=== PATIENT | male | born 1985 | race Caucasian/White ===

== ENCOUNTER 2016-08-27 09:08 | Emergency (ER) | payer OTHER ==
[~2016-08-27] VITALS: Wt 103.5 kg
[~2016-08-27 09:08] MED LIST: NAPR-260 PO
[2016-08-27] MEDS ORDERED: IBUP-1542 PO (10:35)
[2016-08-27] MEDS ORDERED: LORA10TA3 PO (10:35)
--- NOTE | 2016-08-27 11:15 | ERD ---
ER Documentation Chief Complaint Date/Time DATE: 08/27/16 TIME: 11:13 Chief Complaint HEADACHE X ONE MONTH HPI 31-year-old male comes in with a headache on the scalp that started a month ago and has been on and off. Patient also comes in with URI symptoms. Headache is a localized spot on the back of his hand, the last time he noted it was yesterday at this time he has no complaints of pain. It is described as achy, tender when he presses on the area. No fevers, chills, paresthesias, weakness. He also complains a sore throat and congestion, patient also comes in with a sick contact with URI symptoms. Please note patient is deaf, formal [employer] architect was used for this encounter. ROS All systems reviewed and are negative except as per history of present illness. Medications Home Meds Active Scripts Ibuprofen* (Motrin*) 600 Mg Tab, 600 MG PO Q6, #30 TAB Prov:IGNACIA WEBER PA-C 08/27/16 Loratadine* (Loratadine*) 10 Mg Tablet, 10 MG PO DAILY, #30 TAB Prov:IGNACIA WEBER PA-C 08/27/16 Naproxen* (Naprosyn*) 500 Mg Tablet, 500 MG PO BID Y for PAIN AND/OR INFLAMMATION, #30 TAB Prov:CHRISTIANO NEGRON MD 09/30/15 Allergies Allergies: Coded Allergies: No Known Drug Allergy (Verified Allergy, Mild, 02/14/11) PMhx/Soc History of Surgery: No Anesthesia Reaction: No Hx Neurological Disorder: No Hx Respiratory Disorders: No Hx Cardiac Disorders: No Hx Psychiatric Problems: No Hx Miscellaneous Medical Probl: Yes (deaf) Hx Alcohol Use: No Hx Substance Use: No Hx Tobacco Use: No Physical Exam Vitals Vital Signs Date Time Temp Pulse Resp B/P Pulse Ox O2 Delivery O2 Flow Rate FiO2 08/27/16 09:11 98.0 98 20 145/81 99 Physical Exam General: Well-developed, well-nourished. The patient appears in no acute distress. HEENT: Head is normocephalic, atraumatic. Scalp is unremarkable no scleral icterus. Pupils are equal, round, and reactive. Oral mucous membranes are moist. No pharyngeal erythema. Neck: Supple. Nontender. Lungs: Clear to auscultation. Normal air movement. Heart: Regular rate and rhythm. S1 and S2 are normal. No murmurs, gallops, or rubs. Abdomen: Soft, nontender, nondistended. Bowel sounds are normoactive. Extremities: No clubbing or cyanosis. Normal pulses. Moving extremities x 4. No weakness. Neurologic: Alert and oriented 3. No focal deficits. Cranial nerves II to XII grossly intact. Skin: Normal turgor. No rash or lesions. Procedures/MDM The patient is a 31-year-old male who comes in with an acute upper respiratory infection, presumed viral, with a headache that resolved. I believe that the patient's symptoms are likely related to soft tissue process, possibly an abrasion, abscess. He does not have any history of trauma, and I do not feel that the patient warrants a CT scan of the head at this time given that he does not show any signs of infection, stroke, bleed. I offered a CT scan of the head , however given the risk of radiation they felt comfortable foregoing the CT head. The patient has a differential diagnosis of a viral upper respiratory infection, bacterial upper respiratory infection, bronchitis, pneumonia, pharyngitis, laryngitis, epiglottitis, croup, pneumonia. Patient has a normal pulmonary examination, clear breath sounds, normal pulse oximetry, with no corrective measures needed at this time. Fluids, rest, antipyretics were encouraged. Departure Diagnosis: Primary Impression: Acute URI Additional Impression: Headache Condition: Good Patient Instructions: Self-Care for Headaches, Uri, Viral, No Abx (Adult) Additional Instructions: Call your primary care doctor TOMORROW for an appointment during the next 1-2 days.See the doctor sooner or return here if your condition worsens before your appointment time. IGNACIA WEBER PA-C Aug 27, 2016 11:15
== END 2016-08-27 10:41 | disposition home or self-care (01) ==
LOC: FTE 09:08
DX: J06.9 Acute upper respiratory infection, unspecified (principal)
CPT/HCPCS: 99283

== ENCOUNTER → 2017-08-06 | Emergency (ER) | payer OTHER ==
[~2017-08-06] VITALS: Ht 182.9 cm; Wt 97.2 kg
[~2017-08-06] MED LIST changes: +IBUP-1542 PO; +LORA10TA3 PO; +ONDANSETRON 4 MG INJ IV STA; +PANT40TA3 PO; +SOD CHLORIDE 0.9% 1,000 ML IV STA; +TRAM50TA2 PO; +morphine 4 MG/ML VIAL IV STA
[2017-08-06 01:21] VITALS: Ht 182.9 cm; Wt 97.2 kg
--- NOTE | 2017-08-06 01:47 | ERD ---
ER Documentation Chief Complaint Chief Complaint ap HPI The patient is a 31-year-old male, presenting to the ER because of diffuse abdominal pain that began about 9 PM last night. He denies similar symptoms previously, complains of nausea and vomiting initially food and mucus, denies dysuria, diarrhea, constipation. Denies fever, chest pain, dyspnea. He does not smoke nor drink Medical history: Deaf and mute Past surgical history: None ROS All systems reviewed and are negative except as per history of present illness. Medications Home Meds Active Scripts Tramadol HCl (Tramadol HCl) 50 Mg Tablet, 50 MG PO Q6 Y for PAIN, #10 TAB Prov:JOYCE DIEGO MD 08/06/17 Pantoprazole* (Protonix*) 40 Mg Tablet.dr, 40 MG PO DAILY, #20 TAB Prov:JOYCE DIEGO MD 08/06/17 Ibuprofen* (Motrin*) 600 Mg Tab, 600 MG PO Q6, #30 TAB Prov:IGNACIA WEBER PA-C 08/27/16 Loratadine* (Loratadine*) 10 Mg Tablet, 10 MG PO DAILY, #30 TAB Prov:IGNACIA WEBER PA-C 08/27/16 Naproxen* (Naprosyn*) 500 Mg Tablet, 500 MG PO BID Y for PAIN AND/OR INFLAMMATION, #30 TAB Prov:CHRISTIANO NEGRON MD 09/30/15 Allergies Allergies: Coded Allergies: No Known Drug Allergy (Verified Allergy, Mild, 02/14/11) PMhx/Soc History of Surgery: No Anesthesia Reaction: No Hx Neurological Disorder: No Hx Respiratory Disorders: No Hx Cardiac Disorders: No Hx Psychiatric Problems: No Hx Miscellaneous Medical Probl: Yes (deaf) Hx Alcohol Use: No Hx Substance Use: No Hx Tobacco Use: No Physical Exam Vitals Vital Signs Date Time Temp Pulse Resp B/P Pulse Ox O2 Delivery O2 Flow Rate FiO2 08/06/17 01:21 98.0 115 20 138/62 98 Physical Exam Const: No acute distress. Head: Atraumatic. Eyes: Normal Conjunctiva. ENT: Normal External Ears, Nose and Mouth. Neck: Full range of motion. No meningismus. Resp: Clear to auscultation bilaterally. Cardio: Regular rate and rhythm. Abd: Soft, non distended, normal bowel sounds, vague and diffuse abdominal tenderness, no rigidity, rebound, CVA tenderness Skin: No petechiae or rashes. Back: No midline or flank tenderness. Ext: No cyanosis, or edema. Neur: Awake and alert. No focal deficit Psych: Normal Mood and Affect. Result Diagram: 08/06/1720608/06/17 0207 Results 24 hrs Laboratory Tests Test 08/06/17 02:07 08/06/17 02:11 White Blood Count 10.310^3/ul Red Blood Count 4.9910^6/ul Hemoglobin 15.3g/dl Hematocrit 42.3% Mean Corpuscular Volume 84.8fl Mean Corpuscular Hemoglobin 30.7pg Mean Corpuscular Hemoglobin Concent 36.2g/dl Red Cell Distribution Width 12.0% Platelet Count 24624^3/UL Mean Platelet Volume 10.3fl Neutrophils % 86.5% Lymphocytes % 6.7% Monocytes % 5.5% Eosinophils % 0.8% Basophils % 0.2% Nucleated Red Blood Cells % 0.0/100WBC Neutrophils # 8.910^3/ul Lymphocytes # 0.710^3/ul Monocytes # 0.610^3/ul Eosinophils # 0.110^3/ul Basophils # 0.010^3/ul Nucleated Red Blood Cells # 0.010^3/ul Sodium Level 144mmol/L Potassium Level 4.2mmol/L Chloride Level 105mmol/L Carbon Dioxide Level 25mmol/L Anion Gap 18 Blood Urea Nitrogen 18mg/dl Creatinine 1.07mg/dl Glucose Level 110mg/dl Calcium Level 9.7mg/dl Total Bilirubin 0.8mg/dl Direct Bilirubin 0.00mg/dl Indirect Bilirubin 0.8mg/dl Aspartate Amino Transf (AST/SGOT) 24IU/L Alanine Aminotransferase (ALT/SGPT) 36IU/L Alkaline Phosphatase 69IU/L Total Protein 7.8g/dl Albumin 4.6g/dl Globulin 3.20g/dl Albumin/Globulin Ratio 1.43 Lipase 77U/L Urine Opiates Screen Negative Urine Barbiturates Negative Urine Amphetamines Screen Negative Urine Benzodiazepines Screen Negative Urine Cocaine Screen Negative Urine Cannabinoids Negative Ethyl Alcohol Level < 10.0mg/dl Bedside Urine pH (LAB) 6.0 Bedside Urine Protein (LAB) 1+ Bedside Urine Glucose (UA) Negative Bedside Urine Ketones (LAB) Negative Bedside Urine Blood Negative Bedside Urine Nitrite (LAB) Negative Bedside Urine Leukocyte Esterase (L Negative Current Medications Medications (Trade) Dose Ordered Sig/Patel Route PRN Reason Start Time Stop Time Status Last Admin Dose Admin Sodium Chloride (NS) 1,000 ml @ 1,000 mls/hr Q1H STAT IV 08/06/17 01:52 08/06/17 02:51 DC 08/06/17 02:03 Morphine Sulfate (morphine) 4 mg ONCE STAT IV 08/06/17 01:52 08/06/17 01:54 DC 08/06/17 02:03 Ondansetron HCl (Zofran Inj) 4 mg ONCE STAT IV 08/06/17 01:52 08/06/17 01:54 DC 08/06/17 02:03 Procedures/MDM [place] [address] Radiology Main Line: [phone] DIAGNOSTIC IMAGING REPORT Patient: MONICO COYNE : 1985 Age: 31 Sex: M MR #: [id number] DOS: 08/06/17 0152 Ordering MD: JOYCE DIEGO MD Location: E/R Room/Bed: PROCEDURE: XR Chest. CLINICAL INDICATION: Abdominal pain TECHNIQUE: AP Portable chest. COMPARISON: No pertinent prior examinations were submitted for comparison. FINDINGS: The cardiomediastinal silhouette is normal. The lungs are clear. The osseous structures are unremarkable. IMPRESSION: No acute findings. RPTAT: HIKT .Michael Wang MD, MD Date Time Electronically viewed and signed by .Michael Wang MD, on 08/06/2017 02:42 .T/ CC: JOYCE DIEGO MD [place] [address] Radiology Main Line: [phone] DIAGNOSTIC IMAGING REPORT Patient: MONICO COYNE : 1985 Age: 31 Sex: M MR #: [id number] DOS: 08/06/17 0152 Ordering MD: JOYCE DIEGO MD Location: E/R Room/Bed: PROCEDURE: CT abdomen and pelvis without intravenous contrast. CLINICAL INDICATION: Pain. TECHNIQUE: CT of the abdomen/pelvis was performed utilizing axial images with reconstructions in sagittal and coronal planes. The administered radiation dose is CTDI 17 mGy, DLP 1197 mGy-cm. One or more of the following dose reduction techniques were used: automated exposure control, adjustment of the mA and/or kV according to patient size and/or use of iterative reconstruction technique. DICOM images are available. COMPARISON: No pertinent prior examinations were submitted for comparison. FINDINGS: Visualized Chest: The visualized lung bases are clear. Abdomen: The liver, spleen, pancreas, gallbladder,and adrenal glands are unremarkable. The kidneys are without hydronephrosis. No definite urinary calculi are seen. There is no evidence of bowel obstruction. The appendix is normal. No intra- abdominal free air is seen. There is no evidence of intra-abdominal adenopathy or free fluid. Pelvis: There is no evidence of pelvic adenopathy. The uterus and ovaries are without enlargement. The urinary bladder is unremarkable. There is no pelvic free fluid. Osseous structures: Unremarkable. IMPRESSION: No acute findings. RPTAT: HIKT .Michael Wang MD, MD Date Time Electronically viewed and signed by .Michael Wang MD, MD on 08/06/2017 03:19 .T/ CC: JOYCE DIEGO MD MEDICAL MAKING DECISION: The patient is a 31-year-old male, presenting with acute abdominal pain of unclear etiology. He was treated with morphine 4 mg IV for pain, Zofran 4 mg IV for nausea and 1 L normal saline for clinical dehydration with good response. He is stable for outpatient follow-up The differential diagnoses considered include but are not limited to cholelithiasis, cholecystitis, cystitis, pancreatitis, hepatitis, gastritis, peptic ulcer disease, gastric ulcer, appendicitis, diverticulitis, cholangitis, choledocholithiasis, partial small bowel obstruction. Departure Diagnosis: Primary Impression: Abdominal pain Condition: Good Comments He was discharged with Protonix and Ultram The patient's blood pressure was elevated (>120/80) but appears stable without evidence of hypertension emergency or urgency. The patient was counseled about the risks of hypertension and urged to pursue outpatient monitoring and therapy within a week with their primary care physician. I discussed the findings with the patient. I advised the patient to follow-up with the primary physician in about 1-2 days, sooner if needed and return if any concern. Disclaimer: Inadvertent spelling and grammatical errors are likely due to EHR/ dictation software use and do not reflect on the overall quality of patient care. Also, please note that the electronic time recorded on this note does not necessarily reflect the actual time of the patient encounter. JOYCE DIEGO MD Aug 06, 2017 01:47
[2017-08-06 02:12] LABS: URINE BLOOD (Dip) POC Negative (NEGATIVE)
[2017-08-06 02:21] LABS: BASOPHILS % 0.2 % (0.0-2.0); EOSINOPHILS # 0.1 10^3/ul (0.0-0.5); EOSINOPHILS % 0.8 % (0.0-7.0); HEMATOCRIT 42.3 % (42.0-52.0); HEMOGLOBIN 15.3 g/dl (14.0-18.0); LYMPHOCYTES # 0.7 10^3/ul (0.8-2.9); LYMPHOCYTES % 6.7 % (15.0-51.0); MEAN CORPUSCULAR HEMOGLOBIN 30.7 pg (29.0-33.0); MEAN CORPUSCULAR HGB CONC 36.2 g/dl (32.0-37.0); MEAN CORPUSCULAR VOLUME 84.8 fl (82.0-101.0); MEAN PLATELET VOLUME 10.3 fl (7.4-10.4); MONOCYTE # 0.6 10^3/ul (0.3-0.9); MONOCYTES % 5.5 % (0.0-11.0); NEUTROPHIL # 8.9 10^3/ul (1.6-7.5); NEUTROPHILS % 86.5 % (39.0-77.0); PLATELET COUNT 222 10^3/UL (140-415); RED BLOOD COUNT 4.99 10^6/ul (4.70-6.10); WHITE BLOOD COUNT 10.3 10^3/ul (4.8-10.8)
[2017-08-06 02:42] LABS: ALANINE AMINOTRANSFERASE 36 IU/L (13-69); ALBUMIN 4.6 g/dl (3.3-4.9); ALBUMIN/GLOBULIN RATIO 1.43; ALKALINE PHOSPHATASE 69 IU/L (42-121); ANION GAP 18 (8-16); ASPARTATE AMINO TRANSFERASE 24 IU/L (15-46); BILIRUBIN,INDIRECT 0.8 mg/dl (0-1.1); BILIRUBIN,TOTAL 0.8 mg/dl (0.2-1.3); BLOOD UREA NITROGEN 18 mg/dl (7-20); CALCIUM 9.7 mg/dl (8.4-10.2); CARBON DIOXIDE 25 mmol/L (21-31); CHLORIDE 105 mmol/L (97-110); CREATININE 1.07 mg/dl (0.61-1.24); GLUCOSE 110 mg/dl (70-220); POTASSIUM 4.2 mmol/L (3.5-5.1); SODIUM 144 mmol/L (135-144); TOTAL PROTEIN 7.8 g/dl (6.1-8.1)
--- NOTE | 2017-08-06 02:42 | RADRPT ---
PROCEDURE: XR Chest. CLINICAL INDICATION: Abdominal pain TECHNIQUE: AP Portable chest. COMPARISON: No pertinent prior examinations were submitted for comparison. FINDINGS: The cardiomediastinal silhouette is normal. The lungs are clear. The osseous structures are unrema rkable. IMPRESSION: No acute findings. RPTAT: HIKT .Michael Wang MD, MD Date Time Electronically viewed and signed by .Michael Wang MD, MD on 08/06/2017 02:42 .T/
[2017-08-06 02:49] LABS: ETHANOL < 10.0 mg/dl
[2017-08-06 02:58] LABS: BARBITURATES Negative (NEGATIVE); BENZODIAZEPINES Negative (NEGATIVE); CANNABINOIDS Negative (NEGATIVE); COCAINE Negative (NEGATIVE); OPIATES Negative (NEGATIVE)
--- NOTE | 2017-08-06 03:20 | RADRPT ---
PROCEDURE: CT abdomen and pelvis without intravenous contrast. CLINICAL INDICATION: Pain. TECHNIQUE: CT of the abdomen/pelvis was performed utilizing axial images with reconstructions in s agittal and coronal planes. The administered radiation dose is CTDI 17 mGy, DLP 1197 mGy-cm. One or more of the following dose reduction techniques were used: automated exposure control, adjustment of the mA and/or kV according to patient size and/or use of iterative reconstruction technique. DICOM images are available. COMPARISON: No pertinent prior examinations were submitted for comparison. FINDINGS: Visualized Chest: The visualized lung bases are clear. Abdomen: The liver, spleen, pancreas, gallbladder,and adrenal glands are unremarkable. The kidneys are without hydronephrosis. No definite urinary calculi are seen. There is no evidence of bowel obstruction. The appendix is normal. No intra-abdominal free air is seen. There is no evidence of intra-abdominal adenopathy or free fluid. Pelvis: There is no evidence of pelvic adenopathy. The uterus and ovaries are without enlargement. The uri nary bladder is unremarkable. There is no pelvic free fluid. Osseous structures: Unremarkable. IMPRESSION: No acute findings. RPTAT: HIKT .Michael Wang MD, MD Date Time Electronically viewed and signed by .Michael Wang MD, MD on 08/06/2017 03:19 .T/
== END | disposition home or self-care (01) ==
LOC: E/R 01:17
DX: R10.84 Generalized abdominal pain (principal); R11.2 Nausea with vomiting, unspecified; R40.2142 Coma scale, eyes open, spontaneous, at arrival to emergency department; R40.2252 Coma scale, best verbal response, oriented, at arrival to emergency department; R40.2362 Coma scale, best motor response, obeys commands, at arrival to emergency department
CPT/HCPCS: 71010; 74176; 80053; 80306; 80307; 81003; 83690; 85025; J2270; J2405; J7030; 36415; 96374; 96375